=== PATIENT | female | born 1950 | race Caucasian/White ===

== ENCOUNTER 2020-09-30 19:12 | Day surgery (SDCO) | payer MEDICARE ==
[~2020-09-30] VITALS: Ht 157.5 cm; Wt 65.5 kg
[2020-09-30] MEDS ORDERED: COLACE100 MG PO (20:14)
[2020-09-30] MEDS ORDERED: ASPIRIN EC81 MG PO (20:14)
[2020-09-30] MEDS ORDERED: VENTOLIN (2.5 MG/3 M INH (20:14)
[2020-09-30] MEDS ORDERED: SYNTHROID25 MCG PO (20:15)
[2020-09-30] MEDS ORDERED: LASIX40 MG PO (20:15)
[2020-09-30] MEDS ORDERED: LEVEMIR FL100 UNIT/1 SC (20:16)
[2020-09-30] MEDS ORDERED: PROTONIX 40MG T40 MG PO (20:16)
[2020-09-30] MEDS ORDERED: SYMBICORT 80-10.2 GM INH (20:17)
[2020-09-30] MEDS ORDERED: MUCINEX600 MG PO (20:18)
[2020-09-30] MEDS ORDERED: LOPRESSOR25 MG PO (20:19)
[2020-09-30] MEDS ORDERED: FOLIC ACID1 MG PO (20:19)
[2020-09-30] MEDS ORDERED: REMERON15 MG PO (20:20)
[2020-09-30] MEDS ORDERED: MULTIPLE VITAM1 EAC2 PO (20:20)
[2020-09-30] MEDS ORDERED: VENTOLIN HFA IN18 GM INH (20:21)
[2020-09-30] MEDS ORDERED: NORVASC5 MG PO (20:21)
[2020-09-30] MEDS ORDERED: ELIQUIS2.5 MG PO (20:21)
[2020-09-30] MEDS ORDERED: LIPITOR 10MG TA10 MG PO (20:22)
[2020-10-01 06:36] LABS: BASOPHIL 0.1 % (0-2); EOSINOPHIL 0 % (0-7); HCT 35.2 % (37.0-47.0); MCH 30.6 pg (25.0-31.0); MCHC 31.3 g/dL (32.0-36.0); MCV 97.8 fL (78.0-100.0); MONOCYTE 5.7 % (0-12); MPV 11.7 fL (6.0-9.5); NEUTROPHIL 90.6 % (41-80); NRBC 0; PLT 304 K/uL (150-400); WBC 14.3 K/uL (4.0-10.5)
[2020-10-01 07:21] LABS: ALBUMIN 2.1 g/dL (3.4-5.0); BILIRUBIN - TOTAL 0.2 mg/dL (0.2-1.0); BUN/CREAT RATIO (CALC) 35.8 RATIO; CREATININE 1.06 mg/dL (0.51-0.95); GLOBULIN (CALCULATION) 4.3 g/dL; POTASSIUM 5.2 mmol/L (3.5-5.1); TOTAL PROTEIN 6.4 g/dL (6.4-8.2)
--- NOTE | 2020-10-01 09:52 | NUR ---
10/01/20 Please consider discharge or full admit. Thank You!
--- NOTE | 2020-10-01 09:52 | NUR ---
10/01/20 Ms. Puente lives at home with her significant other. She has a rw. Will monitor for 02 needs.
[2020-10-02 06:43] LABS: BASOPHIL 0.2 % (0-2); EOSINOPHIL 0.3 % (0-7); HCT 40.2 % (37.0-47.0); LYMPHOCYTE 4.3 % (15-48); MCH 30.6 pg (25.0-31.0); MCHC 32.3 g/dL (32.0-36.0); MCV 94.6 fL (78.0-100.0); MONOCYTE 4.4 % (0-12); NRBC 0; PLT 405 K/uL (150-400); RBC 4.25 M/uL (4.20-5.40); WBC 18.1 K/uL (4.0-10.5)
[2020-10-02 06:44] LABS: NEUTROPHIL 90.2 % (41-80)
[2020-10-02 07:05] LABS: BUN/CREAT RATIO (CALC) 33.3 RATIO; CREATININE 0.96 mg/dL (0.51-0.95); POTASSIUM 4.2 mmol/L (3.5-5.1)
[2020-10-02] MEDS ORDERED: MEDROL 4MG DOSEP4 MG PO (07:42)
[2020-10-02] MEDS ORDERED: LOPRESSOR50 MG PO (07:42)
[2020-10-02] MEDS ORDERED: AMOX TR-K CLV1 EAC4 PO (07:42)
[2020-10-02] MEDS ORDERED: DOXYCYCLINE MO100 MG PO (07:42)
[2020-10-02] MEDS ORDERED: ONDANSETRON ODT4 MG PO (07:45)
== END 2020-10-02 12:00 | disposition home or self-care (01) ==
LOC: FMS 19:12
PROVIDERS: Nurse Practitioner; ADMIT Allergy & Immunology Allergy
DX: J18.9 Pneumonia, unspecified organism (principal); J96.91 Respiratory failure, unspecified with hypoxia; I10 Essential (primary) hypertension; E86.0 Dehydration; N39.0 Urinary tract infection, site not specified; E11.65 Type 2 diabetes mellitus with hyperglycemia; T38.0X5A Adverse effect of glucocorticoids and synthetic analogues, initial encounter; K44.9 Diaphragmatic hernia without obstruction or gangrene; K57.30 Diverticulosis of large intestine without perforation or abscess without bleeding; M47.815 Spondylosis without myelopathy or radiculopathy, thoracolumbar region; N17.9 Acute kidney failure, unspecified; Z86.73 Personal history of transient ischemic attack (TIA), and cerebral infarction without residual deficits; Z79.01 Long term (current) use of anticoagulants; Z79.4 Long term (current) use of insulin; Z79.82 Long term (current) use of aspirin; Z79.899 Other long term (current) drug therapy
CPT/HCPCS: 36415; 71046; 74019; 80048; 80053; 83036; 84145; 84484; 85025; 93005; 94640; 94762; G0378; J0360; J0456; J0696; J2405; J2550; J2930; J7050